=== PATIENT | male | born 1965 | race Caucasian/White ===

== ENCOUNTER 2019-12-27 05:27 | Day surgery (SDC) | payer MEDICAID ==
[2019-12-25 13:50] LABS: BASOPHILS 0.7 % (0-2); EOSINOPHILS 3.9 % (0-7); HEMATOCRIT 32.7 % (42.0-54.0); HEMOGLOBIN 10.5 g/dL (13.5-17.5); IMMATURE GRANULOCYTES 0.1 % (0-5); LYMPHOCYTES 34.2 % (15-50); MCH 31.6 pg (26.0-34.0); MCHC 32.1 g/dL (31.0-37.0); MCV 98.5 fL (80.0-100.0); MEAN PLATELET VOLUME 8.7 fL (7.4-10.4); MONOCYTES 7.1 % (2-11); PLATELET COUNT 276 10x3/uL (130-400); RBC 3.32 10x6/uL (4.20-6.10); RDW 13.9 % (11.5-14.5); WBC 6.9 10x3/uL (4.8-10.8)
[2019-12-25 13:51] LABS: ANION GAP 11.3 mmol/L (8-16); CALCIUM 8.9 mg/dL (8.5-10.1); CARBON DIOXIDE 26.8 mmol/L (21.0-32.0); CREATININE - SERUM 2.6 mg/dL (0.6-1.3); POTASSIUM - SERUM 4.1 mmol/L (3.5-5.1)
[~2019-12-27] VITALS: Ht 180.3 cm; Wt 81.2 kg
[~2019-12-27 05:27] MED LIST: CYPROHEPTAD; FERRIC CITRATE210 MG; HYDROCODONE-IB1 EAC3 PO; MULTI-DAY VITAM1 TAB PO; NEURONTIN 300300 MG PO; NORVASC5 MG PO; SODIUM BICARBO650 MG; SYNTHROID100 MCG PO
[2019-12-27 06:10] VITALS: BP 109/69; Ht 180.3 cm; Wt 81.2 kg
--- NOTE | 2019-12-27 08:27 | NUR ---
PATIENT VOICED UNABLE TO CONFIRM POSITIVE HISTORY OF BLOOD CLOTS, BUT HAS BEEN TREATED FOR THEM. SEQUENTIAL COMPRESSION DEVICE CUFFS NOT PLACED ON PATIENT DUE TO INABILITY TO CONFIRM OR DENY HISTORY OF BLOOD CLOTS.
[2019-12-27] MEDS ORDERED: PERCOCET 5-3251 TAB PO (09:16)
--- NOTE | 2019-12-27 10:25 | NUR ---
DC INSTRUCTIONS GIVEN TO PT. STATES UNDERSTANDING. CALLED HIS MOTHER TO INFORM HER THAT PT IS BACK FROM PROCEDURE/RECOVERY AND SHOULD BE READY TO BE PICKED UP AT ABOUT 1100, THOUGH HE WILL HAVE TO VOID BEFORE DC'D. PT'S MOTHER STATES UNDERSTANDING. WILL CONTINUE TO MONITOR PT.
--- NOTE | 2019-12-27 11:18 | NUR ---
PT VOIDED. DC'D IV CATH FULLY INTACT. PT LEFT UNIT VIA WC AT 1110
--- NOTE | 2019-12-31 16:49 | OP ---
PATIENT NAME: OMEGA SONG MEDICAL RECORD: [id number] :61 LOCATION:[facility] ADMISSION DATE: SURGEON: SCOUT KITCHEN MD DATE OF OPERATION: 12/27/2019 PREOPERATIVE DIAGNOSES: 1. Bilateral inguinal hernias. 2. Chronic nicotine dependence. 3. Chronic kidney disease. 4. Chronic low back pain. 5. Hypertension. POSTOPERATIVE DIAGNOSES: 1. Bilateral inguinal hernias. 2. Chronic nicotine dependence. 3. Chronic kidney disease. 4. Chronic low back pain. 5. Hypertension. PROCEDURE: Bilateral inguinal hernia repairs with medium PHS mesh. SURGEON: Scout Kitchen MD REPORT OF PROCEDURE: The patient's abdomen and groin were prepped and draped in sterile fashion. The left side was approached first. An oblique incision was made above the inguinal ligament. Electrocautery was used to dissect through the subcutaneous tissues to the external oblique fascia. This fascia was opened up to the external ring using electrocautery. We elevated the spermatic cord. A Brigette was then placed around it. The ilioinguinal nerve was found and high ligated and we were then able to dissect a direct hernia defect off of the spermatic cord. This was a [id number] in size. We were able to open this up and free up the preperitoneal space of Retzius and inserted a medium PHS mesh. This was sutured on all 4 sides using multiple interrupted 0 Vicryl. We then irrigated out the wound with normal saline and ensured there was no sign of any bleeding. The external oblique fascia was closed with running 2-0 Vicryl, Karla's was closed with interrupted 3-0 Vicryl and the skin was closed with running subcutaneous 5-0 Monocryl. A 10 mL of 0.25% Marcaine with epinephrine was infused into the surrounding tissues. We then approached the right side. An oblique incision was made above the inguinal ligament. Electrocautery was used to dissect through the subcutaneous tissues down to the external oblique fascia. This fascia was opened up to the external ring using electrocautery. The spermatic cord was elevated and a [place] was placed around it. The ilioinguinal nerve was found and high ligated. The patient had an indirect hernia defect. The patient's epigastric vessels were actually pretty adherent to this. We carefully dissected these off of the hernia sac and eventually we were able to push the hernia sac back into the abdominal cavity. The preperitoneal space of Retzius was opened up in all directions and a medium PHS mesh was inserted. This was sutured down on all 4 sides using multiple interrupted 0 Vicryl. The wound was then irrigated out with normal saline. External oblique fascia was closed with running 2-0 Vicryl, Karla's was closed with interrupted 3-0 Vicryls and the skin was closed with running subcutaneous 5-0 Monocryl. A 10 mL of 0.25% Marcaine with epinephrine was infused into the surrounding tissues. COMPLICATIONS: None. OPERATIVE REPORT [id number] FAIR,OMEGA CONDITION: Stable. ANESTHESIA: General endotracheal and local. BLOOD LOSS: 50 mL. TRANSINT:[id number] Voice Confirmation ID: [id number] DOCUMENT ID: [id number] SCOUT KITCHEN MD at 1649 CC: ANABELLA SOLANO MD [id number] DICTATION DATE: 12/27/19922 REMOTE CONTROL ASSEMBLER: 12/27/19 1452 [facility] 12/27/19 [facility] [address] [place] [address]
== END 2019-12-27 11:10 | disposition home or self-care (01) ==
LOC: D.OPS 05:27 → D.PAN 07:30 → D.OPS 11:10
PROVIDERS: ATTEND Surgery
DX: K40.20 Bilateral inguinal hernia, without obstruction or gangrene, not specified as recurrent (principal); F17.200 Nicotine dependence, unspecified, uncomplicated; I12.9 Hypertensive chronic kidney disease with stage 1 through stage 4 chronic kidney disease, or unspecified chronic kidney disease; N18.9 Chronic kidney disease, unspecified; M54.5 Low back pain; G89.29 Other chronic pain

== ENCOUNTER 2020-05-02 11:24 | Emergency (ER) | payer MEDICAID ==
[~2020-05-02] VITALS: Ht 180.3 cm; Wt 80.9 kg
[~2020-05-02 11:24] MED LIST changes: +PERCOCET 5-3251 TAB PO
[2020-05-02 11:52] VITALS: Ht 180.3 cm; Wt 80.9 kg
[2020-05-02 12:24] LABS: BILIRUBIN NEGATIVE (NEGATIVE); KETONE NEGATIVE (NEGATIVE); NITRITE NEGATIVE (NEGATIVE); UROBILINOGEN NORMAL mg/dL (< 2)
[2020-05-02 12:35] LABS: BASOPHILS 1.2 % (0-2); EOSINOPHILS 3.8 % (0-7); HEMATOCRIT 38.4 % (42.0-54.0); HEMOGLOBIN 12.6 g/dL (13.5-17.5); IMMATURE GRANULOCYTES 0.3 % (0-5); LYMPHOCYTES 44.4 % (15-50); MCH 32.5 pg (26.0-34.0); MCHC 32.8 g/dL (31.0-37.0); MEAN PLATELET VOLUME 9.6 fL (7.4-10.4); MONOCYTES 6.6 % (2-11); NEUTROPHILS 43.7 % (40-80); PLATELET COUNT 237 10x3/uL (130-400); RBC 3.88 10x6/uL (4.20-6.10); RDW 12.9 % (11.5-14.5); WBC 7.4 10x3/uL (4.8-10.8)
[2020-05-02 12:39] LABS: CALC OSMOLALITY 277 mosm/kg (275-300); CALCIUM 8.5 mg/dL (8.5-10.1); CARBON DIOXIDE 23.2 mmol/L (21.0-32.0); CHLORIDE - SERUM 104 mmol/L (98-107); GLUCOSE 87 mg/dL (74-106); POTASSIUM - SERUM 4.6 mmol/L (3.5-5.1); SODIUM 138 mmol/L (136-145); UREA NITROGEN 22 mg/dL (7-18); eGFR NON AFRICAN AMERICAN 37 mL/min (90-120)
[2020-05-02 12:44] LABS: ALBUMIN 3.5 g/dL (3.4-5.0); ALKALINE PHOSPHATASE 172 U/L (30-120); ALT (SGPT) 18 U/L (10-68); AMYLASE - SERUM 38 U/L (25-115); BILIRUBIN - TOTAL 0.19 mg/dL (0.2-1.3); LIPASE 53 U/L (73-393); PROTEIN - SERUM 7.3 g/dL (6.4-8.2)
[2020-05-02 12:45] LABS: TROPONIN-I < 0.017 ng/mL (0.000-0.060)
[2020-05-02] MEDS ORDERED: ACETAMINOPHEN500 M1 PO (14:35)
[2020-05-02] MEDS ORDERED: IBUPROFEN800 MG PO (14:35)
[2020-05-02] MEDS ORDERED: CYCLOBENZAPRINE10 MG PO (14:35)
[2020-05-02] MEDS ORDERED: MEDROL DOSE PACK4 MG PO (14:38)
[2020-05-02 14:58] VITALS: BP 122/76
== END 2020-05-02 14:59 | disposition home or self-care (01) ==
LOC: D.ER 11:24
PROVIDERS: Family Medicine
DX: M79.18 Myalgia, other site (principal); M79.651 Pain in right thigh; E07.9 Disorder of thyroid, unspecified; I10 Essential (primary) hypertension; Z72.0 Tobacco use

== ENCOUNTER 2020-05-27 15:08 | Emergency (ER) | payer MEDICAID ==
[~2020-05-27] VITALS: Ht 180.3 cm; Wt 77.3 kg
[~2020-05-27 15:08] MED LIST changes: +ACETAMINOPHEN500 M1 PO; +CYCLOBENZAPRINE10 MG PO; +IBUPROFEN800 MG PO; +MEDROL DOSE PACK4 MG PO
[2020-05-27 15:29] VITALS: Ht 180.3 cm; Wt 77.3 kg
[2020-05-27] MEDS ORDERED: HYDROCODON-ACE1 EA10 PO (20:17)
[2020-05-27] MEDS ORDERED: TORADOL10 MG PO (20:17)
[2020-05-27 20:20] VITALS: BP 110/67
== END 2020-05-27 20:20 | disposition home or self-care (01) ==
LOC: D.ER 15:08
DX: G89.18 Other acute postprocedural pain (principal); M25.551 Pain in right hip; E03.9 Hypothyroidism, unspecified; I10 Essential (primary) hypertension; Z72.0 Tobacco use